=== PATIENT | male | born 1960 | race American Indian/Alaskan Native ===

== ENCOUNTER 2017-03-12 14:08 | Emergency (ER) | payer OTHER ==
[2017-03-12 14:28] VITALS: BP 137/82
--- NOTE | 2017-03-12 14:28 | Emergency Department Report ---
ED General Adult HPI - General Chief complaint: Skin Rash Stated complaint: RASH BREAKOUT Time Seen by Provider: 03/12/17 14:14 Source: patient Mode of arrival: Ambulatory Limitations: No Limitations - History of Present Illness Initial comments: PT c/o gradual onset of rash while at home on Saturday. PT states he was sitting outside when he felt the itching starting. PT denies close contacts with a rash. PT has not taken any medication for the rash because he did not know what to take. MD Complaint: rash -: Gradual, days(s) Location: face, chest, back, abdomen, left, right, upper extremity, lower extremity Severity scale (0 -10): 0 Quality: other (itching ) Consistency: constant Improves with: none Worsens with: none Associated Symptoms: rash. denies: chest pain, headaches, nausea/vomiting Treatments Prior to Arrival: none - Related Data Previous Rx's Medication Instructions Recorded Last Taken Type hydrOXYzine PAMOATE [Vistaril] 25 mg PO Q6HR PRN #12 capsule 03/12/17 Unknown Rx methylPREDNISolone [Medrol] 4 mg PO DAILY #1 tab.ds.pk 03/12/17 Unknown Rx Allergies Allergy/AdvReac Type Severity Reaction Status Date / Time No Known Allergies Allergy Verified 03/12/17 14:24 ED Review of Systems ROS: Stated complaint: RASH BREAKOUT Other details as noted in HPI Comment: All other systems reviewed and negative Constitutional: denies: fever, malaise Cardiovascular: denies: chest pain Gastrointestinal: denies: nausea, vomiting Skin: rash Neurological: denies: headache ED Past Medical Hx - Past Medical History Previous Medical History?: No Hx Diabetes: No Hx Renal Disease: No - Social History Substance Use Type: Alcohol (occasionally ) - Medications Home Medications: Home Medications Medication Instructions Recorded Confirmed Last Taken Type hydrOXYzine PAMOATE [Vistaril] 25 mg PO Q6HR PRN #12 capsule 03/12/17 Unknown Rx methylPREDNISolone [Medrol] 4 mg PO DAILY #1 tab.ds.pk 03/12/17 Unknown Rx ED Physical Exam - General Limitations: No Limitations General appearance: alert, in no apparent distress - Head Head exam: Present: atraumatic, normocephalic, normal inspection - Eye Eye exam: Present: normal appearance. Absent: conjunctival injection - ENT ENT exam: Present: normal exam, normal orophraynx, normal external ear exam - Neck Neck exam: Present: normal inspection, full ROM. Absent: lymphadenopathy - Respiratory Respiratory exam: Present: normal lung sounds bilaterally. Absent: respiratory distress, chest wall tenderness - Cardiovascular Cardiovascular Exam: Present: regular rate, normal rhythm, normal heart sounds - GI/Abdominal GI/Abdominal exam: Present: soft. Absent: tenderness - Extremities Exam Extremities exam: Present: full ROM, normal capillary refill. Absent: normal inspection (rash to bue ) - Back Exam Back exam: Present: normal inspection, full ROM. Absent: tenderness, CVA tenderness (R), CVA tenderness (L), muscle spasm, paraspinal tenderness, vertebral tenderness - Neurological Exam Neurological exam: Present: alert, oriented X3, normal gait - Psychiatric Psychiatric exam: Present: normal affect, normal mood - Skin Skin exam: Present: warm, dry, intact, rash - Expanded Skin Exam Expanded Distribution of rash: generalized (does not involve the palms or soles ), chest ( R side of chest ), abdomen, RUE, LUE Description of rash: Present: erythematous (mildy ), macular, papular. Absent: blisters, bullous, petechial, purpuic, urticarial, discharge ED Course Vital Signs 03/12/17 14:25 Temperature 98.5 F Pulse Rate 57 L Respiratory 16 Rate Blood Pressure 137/82 O2 Sat by Pulse 100 Oximetry - Reevaluation(s) Reevaluation #1: 03/12/17 14:45 PT aware of dx and he has no questions at this time. - Pulse Oximetry Interpretation Digit-Finger Initial Pulse Oximetry Readin Actions Taken: none ED Medical Decision Making - Differential Diagnosis uriticira, contact dermatitis, allergic reaction Critical Care Time: No Critical care attestation.: If time is entered above; I have spent that time in minutes in the direct care of this critically ill patient, excluding procedure time. ED Disposition Clinical Impression: Rash and nonspecific skin eruption Disposition: TO HOME OR SELFCARE Is pt being admited?: No Does the pt Need Aspirin: No Condition: Stable Instructions: Contact Dermatitis (ED), Acute Rash (ED) Additional Instructions: No driving or alcohol after taking Vistaril for itching Do not take Benadryl with Vistaril Follow up with PCP in 3- 5 days Prescriptions: hydrOXYzine PAMOATE [Vistaril] 25 mg PO Q6HR PRN #12 capsule PRN Reason: Itching methylPREDNISolone [Medrol] 4 mg PO DAILY #1 tab.ds.pk Referrals: PRIMARY CARE, [Primary Care Provider] - 3-5 Days FABIOLA BARRAZA MD [Staff Physician] - 3-5 Days Forms: Work/School Release Form(ED) Time of Disposition: 14:48
== END 2017-03-12 14:55 | disposition home or self-care (01) ==
LOC: ED 14:08
DX: R21 Rash and other nonspecific skin eruption (principal)
CPT/HCPCS: 99282

== ENCOUNTER 2017-06-01 15:05 | Emergency (ER) | payer OTHER ==
[2017-06-01 15:19] VITALS: BP 144/73
[2017-06-01] MEDS ORDERED: DECADRON IM ONE (15:46)
--- NOTE | 2017-06-01 15:50 | Emergency Department Report ---
ED Neck Pain/Injury HPI - General Chief Complaint: Neck Pain/Injury Stated Complaint: NECK PAIN Time Seen by Provider: 06/01/17 15:43 Mode of arrival: Ambulatory Limitations: No Limitations - Related Data Previous Rx's Medication Instructions Recorded Last Taken Type hydrOXYzine PAMOATE [Vistaril] 25 mg PO Q6HR PRN #12 capsule 03/12/17 Unknown Rx methylPREDNISolone [Medrol] 4 mg PO DAILY #1 tab.ds.pk 03/12/17 Unknown Rx Cyclobenzaprine [Flexeril] 10 mg PO TID PRN #10 tablet 06/01/17 Unknown Rx methylPREDNISolone [Medrol] 4 mg PO DAILY #1 tab.ds.pk 06/01/17 Unknown Rx traMADol [Ultram] 50 mg PO Q6HR PRN #10 tablet 06/01/17 Unknown Rx Allergies Allergy/AdvReac Type Severity Reaction Status Date / Time No Known Allergies Allergy Verified 03/12/17 14:24 ED Review of Systems ROS: Stated complaint: NECK PAIN Other details as noted in HPI Comment: Unobtainable due to pts medical conditions Constitutional: no symptoms reported, see HPI. denies: chills Eyes: as per HPI. denies: eye pain ENT: as per HPI. denies: ear pain, throat pain Respiratory: see HPI. denies: no symptoms reported, cough, orthopnea Cardiovascular: as per HPI. denies: chest pain, palpitations, dyspnea on exertion, orthopnea Endocrine: no symptoms reported, see HPI. denies: flushing, intolerance to heat Gastrointestinal: as per HPI. denies: abdominal pain, nausea, vomiting Genitourinary: as per HPI. denies: urgency, dysuria Musculoskeletal: as per HPI, other (NECK STIFF THIS AM ON WAKENING NO FALL OR TRAUMA). denies: back pain, joint swelling, arthralgia Skin: as per HPI. denies: rash, lesions Neurological: as per HPI. denies: headache, weakness Psychiatric: as per HPI. denies: anxiety, depression Hematological/Lymphatic: as per HPI. denies: easy bleeding ED Past Medical Hx - Past Medical History Previous Medical History?: Yes Hx Diabetes: No Hx Renal Disease: No Additional medical history: hemorrhoids - Surgical History Past Surgical History?: No - Social History Smoking Status: Never Smoker Substance Use Type: Alcohol, Non Opiate Pain - Medications Home Medications: Home Medications Medication Instructions Recorded Confirmed Last Taken Type hydrOXYzine PAMOATE [Vistaril] 25 mg PO Q6HR PRN #12 capsule 03/12/17 Unknown Rx methylPREDNISolone [Medrol] 4 mg PO DAILY #1 tab.ds.pk 03/12/17 Unknown Rx Cyclobenzaprine [Flexeril] 10 mg PO TID PRN #10 tablet 06/01/17 Unknown Rx methylPREDNISolone [Medrol] 4 mg PO DAILY #1 tab.ds.pk 06/01/17 Unknown Rx traMADol [Ultram] 50 mg PO Q6HR PRN #10 tablet 06/01/17 Unknown Rx ED Physical Exam - General Limitations: No Limitations General appearance: alert - Head Head exam: Present: atraumatic - Eye Eye exam: Present: normal appearance, PERRL - ENT ENT exam: Present: mucous membranes moist - Neck Neck exam: Present: normal inspection, full ROM (W PAIN ALYSSA TO R). Absent: tenderness, meningismus, lymphadenopathy, thyromegaly - Respiratory Respiratory exam: Present: normal lung sounds bilaterally - Cardiovascular Cardiovascular Exam: Present: regular rate - GI/Abdominal GI/Abdominal exam: Present: soft - Extremities Exam Extremities exam: Present: normal inspection, full ROM. Absent: tenderness - Back Exam Back exam: Present: normal inspection, muscle spasm (R TRAP). Absent: tenderness, CVA tenderness (R), CVA tenderness (L) - Neurological Exam Neurological exam: Present: alert, oriented X3, CN II-XII intact, normal gait, reflexes normal (DROVE SELF TO ER) - Psychiatric Psychiatric exam: Present: normal affect, normal mood - Skin Skin exam: Present: warm, dry, intact ED Course Vital Signs 06/01/17 15:15 Temperature 98.2 F Pulse Rate 62 Respiratory 16 Rate Blood Pressure 144/73 O2 Sat by Pulse 100 Oximetry - Reevaluation(s) Reevaluation #1: 06/01/17 15:52 TO ER WOKE W STIFF NECK THIS AM WORSEN DAY GOES ON NO AIKEN NO S/S MENINGEAL IRR NO FEVER DROVE TO ER TORTICU. MED W ORTHO FU ED Medical Decision Making - Medical Decision Making TORTICUL. NO FALL OR TRAUMA Critical care attestation.: If time is entered above; I have spent that time in minutes in the direct care of this critically ill patient, excluding procedure time. ED Disposition Clinical Impression: Torticollis Disposition: DC-01 TO HOME OR SELFCARE Is pt being admited?: No Does the pt Need Aspirin: No Condition: Stable Instructions: Spasmodic Torticollis (ED) Additional Instructions: REST HEAT TAKE MEDS AND REST DO NOT DRIVE W MEDS FOLLOW UP ORTHO THIS WEEK Prescriptions: Cyclobenzaprine [Flexeril] 10 mg PO TID PRN #10 tablet PRN Reason: Muscle Spasm methylPREDNISolone [Medrol] 4 mg PO DAILY #1 tab.ds.pk traMADol [Ultram] 50 mg PO Q6HR PRN #10 tablet PRN Reason: Pain Referrals: YULI BROWN MD [Staff Physician] - 3-5 Days KALLI SALINAS MD [Staff Physician] - 3-5 Days Time of Disposition: 15:49
== END 2017-06-01 16:18 | disposition home or self-care (01) ==
LOC: ED 15:05
DX: M43.6 Torticollis (principal)
CPT/HCPCS: 96372; 99282; J1100

== ENCOUNTER 2017-07-13 15:16 | Emergency (ER) | payer OTHER ==
[2017-07-13 16:09] LABS: Eosinophils % (Auto) 1.9 % (0.0-4.3); Hematocrit 40.8 % (35.5-45.6); Hemoglobin 14.2 gm/dl (11.8-15.2); Mean Corpuscular HGB Conc 35 % (32-34); Mean Corpuscular Hemoglobin 32 pg (28-32); Mean Corpuscular Volume 93 fl (84-94); Platelet Count 213 K/mm3 (140-440); Red Blood Count 4.38 M/mm3 (3.65-5.03); Red Cell Distribution Width 13.2 % (13.2-15.2); White Blood Count 4.7 K/mm3 (4.5-11.0)
[2017-07-13 16:22] LABS: Anion Gap 19 mmol/L; BUN/Creatinine Ratio 13; Blood Urea Nitrogen 13 mg/dL (9-20); Calcium 9.5 mg/dL (8.4-10.2); Carbon Dioxide 24 mmol/L (22-30); Chloride 100.5 mmol/L (98-107); Glucose 88 mg/dL (75-100); Potassium 4.3 mmol/L (3.6-5.0); Sodium 139 mmol/L (137-145)
[2017-07-13 17:13] LABS: Alanine Aminotransferase 13 units/L (7-56); Albumin 4.6 g/dL (3.9-5); Albumin/Globulin Ratio 1.5 %; Alkaline Phosphatase 41 units/L (35-129); Total Protein 7.6 g/dL (6.3-8.2)
[2017-07-13 17:16] LABS: Bilirubin,Direct < 0.2 mg/dL (0-0.2); Bilirubin,Indirect 0.4 mg/dL
--- NOTE | 2017-07-14 04:39 | Emergency Department Report ---
ED Chest Pain HPI - General Chief Complaint: Arrhythmia/Palpitations Stated Complaint: heart fluttering Time Seen by Provider: 07/14/17 04:35 Source: patient Mode of arrival: Ambulatory Limitations: No Limitations - History of Present Illness Initial Comments: Patient is a 56-year-old male that presents to emergency room with chest pressure and palpitations and heart fluttering 6 days. She states symptoms are intermediate. MD Complaint: chest pain -: Gradual, days(s) ( Intermittent over the last 6 days and worsening) Onset: during rest, during exertion Pain Location: substernal Severity: mild, moderate Severity scale (0 -10): 4 Quality: pressure Consistency: intermittent Improves With: rest Worsens With: exertion Other Symptoms: palpitations Treatments Prior to Arrival: none Aspirin use within the Past 7 Days: (0) No - Related Data On Oral Contraceptives: No Previous Rx's Medication Instructions Recorded Last Taken Type hydrOXYzine PAMOATE [Vistaril] 25 mg PO Q6HR PRN #12 capsule 03/12/17 Unknown Rx methylPREDNISolone [Medrol] 4 mg PO DAILY #1 tab.ds.pk 03/12/17 Unknown Rx Cyclobenzaprine [Flexeril] 10 mg PO TID PRN #10 tablet 06/01/17 Unknown Rx methylPREDNISolone [Medrol] 4 mg PO DAILY #1 tab.ds.pk 06/01/17 Unknown Rx traMADol [Ultram] 50 mg PO Q6HR PRN #10 tablet 06/01/17 Unknown Rx Allergies Allergy/AdvReac Type Severity Reaction Status Date / Time No Known Allergies Allergy Verified 03/12/17 14:24 Heart Score - HEART Score History: Slightly suspicious EKG: Normal Age: 45-65 Risk factors: No known risk factors Troponin: < normal limit HEART Score: 1 ED Review of Systems ROS: Stated complaint: heart fluttering Other details as noted in HPI Comment: All other systems reviewed and negative Constitutional: no symptoms reported Eyes: as per HPI ENT: as per HPI Respiratory: no symptoms reported Cardiovascular: as per HPI, chest pain, palpitations Endocrine: no symptoms reported ED Past Medical Hx - Past Medical History Previous Medical History?: No Hx Diabetes: No Hx Renal Disease: No Additional medical history: hemorrhoids - Social History Smoking Status: Never Smoker Substance Use Type: Alcohol - Medications Home Medications: Home Medications Medication Instructions Recorded Confirmed Last Taken Type hydrOXYzine PAMOATE [Vistaril] 25 mg PO Q6HR PRN #12 capsule 03/12/17 Unknown Rx methylPREDNISolone [Medrol] 4 mg PO DAILY #1 tab.ds.pk 03/12/17 Unknown Rx Cyclobenzaprine [Flexeril] 10 mg PO TID PRN #10 tablet 06/01/17 Unknown Rx methylPREDNISolone [Medrol] 4 mg PO DAILY #1 tab.ds.pk 06/01/17 Unknown Rx traMADol [Ultram] 50 mg PO Q6HR PRN #10 tablet 06/01/17 Unknown Rx ED Physical Exam - General Limitations: No Limitations General appearance: alert, in no apparent distress - Head Head exam: Present: atraumatic, normocephalic - Eye Eye exam: Present: normal appearance - ENT ENT exam: Present: mucous membranes moist - Neck Neck exam: Present: normal inspection - Respiratory Respiratory exam: Present: normal lung sounds bilaterally. Absent: respiratory distress - Cardiovascular Cardiovascular Exam: Present: regular rate, normal rhythm. Absent: systolic murmur, diastolic murmur, rubs, gallop - GI/Abdominal GI/Abdominal exam: Present: soft, normal bowel sounds - Rectal Rectal exam: Present: deferred - Extremities Exam Extremities exam: Present: normal inspection - Back Exam Back exam: Present: normal inspection - Neurological Exam Neurological exam: Present: alert, oriented X3 - Psychiatric Psychiatric exam: Present: normal affect, normal mood - Skin Skin exam: Present: warm, dry, intact, normal color. Absent: rash ED Course Vital Signs 07/13/17 07/13/17 07/14/17 15:30 22:18 04:15 Temperature 97.9 F 98.7 F Pulse Rate 18 L 64 59 L Respiratory 18 16 15 Rate Blood Pressure 111/78 105/65 O2 Sat by Pulse 100 98 97 Oximetry 07/14/17 07/14/17 07/14/17 04:31 04:45 05:01 Temperature Pulse Rate 71 64 62 Respiratory 12 17 16 Rate Blood Pressure O2 Sat by Pulse 99 98 96 Oximetry 07/14/17 07/14/17 05:14 05:15 Temperature Pulse Rate 60 Respiratory 15 11 L Rate Blood Pressure O2 Sat by Pulse 98 96 Oximetry DRISS score - Driss Score Age > 65: (0) No Aspirin use within the Past 7 Days: (0) No 3 or more CAD Risk Factors: (0) No 2 or more Angina events in past 24 hrs: (0) No Known CAD with more than 50% Stenosis: (0) No Elevated Cardiac Markers: (0) No ST Deviation Greater than 0.5mm: (0) No DRISS Score: 0 ED Medical Decision Making - Lab Data Result diagrams: 07/13/17 15:54 07/13/17 15:54 3 sets of cardiac enzymes negative. EKG is negative. Labs negative - EKG Data -: EKG Interpreted by Me EKG shows normal: sinus rhythm Rate: normal - EKG Data Interpretation: no acute changes, normal EKG Critical care attestation.: If time is entered above; I have spent that time in minutes in the direct care of this critically ill patient, excluding procedure time. ED Disposition Clinical Impression: Chest pain, Palpitations Disposition: - TO HOME OR SELFCARE Is pt being admited?: No Does the pt Need Aspirin: No Condition: Stable Instructions: Chest Pain (ED), Palpitations (ED) Additional Instructions: Patient to follow up with primary care and tape maker within 3-5 days. Patient to return to ED if condition worsens. Patient to take Tylenol or ibuprofen when necessary for pain. Patient to increase water. No strenuous activity until cleared by PCP and tape maker. Referrals: PRIMARY CARE,MD [Primary Care Provider] - 3-5 Days Time of Disposition: 05:35
[2017-07-14 05:21] LABS: Creatine Kinase 120 units/L (55-170)
[2017-07-14 06:09] VITALS: BP 120/72
== END 2017-07-14 07:28 | disposition home or self-care (01) ==
LOC: ED 15:16
DX: R07.89 Other chest pain (principal)
CPT/HCPCS: 36415; 80048; 80074; 82550; 82553; 83735; 84484; 85025; 93005; 93010; 99284